=== PATIENT | male | born 1950 | race Caucasian/White ===

== ENCOUNTER 2023-08-23 15:04 | Emergency (ER) | payer MEDICARE ==
[~2023-08-23] VITALS: Ht 177.8 cm; Wt 68.9 kg
[2023-08-23] MEDS ORDERED: ZOLP5TAB8 PO (15:35)
[2023-08-23] MEDS ORDERED: SIMV-46 PO (15:35)
[2023-08-23] MEDS ORDERED: AMLO10TA59 PO (15:35)
[2023-08-23] MEDS ORDERED: LISI40TA13 PO (15:35)
[2023-08-23] MEDS ORDERED: CLON0.5T4 PO (15:35)
[2023-08-23 16:04] LABS: BASOPHILS # (AUTO) 0.2 K/UL (0.0-0.2); EOSINOPHILS # (AUTO) 0.1 K/uL (0.0-0.7); EOSINOPHILS % (AUTO) 0.7 % (0.0-7.0); HEMATOCRIT 37.5 % (36.7-47.1); HEMOGLOBIN 12.9 g/dL (12.5-16.3); LYMPHOCYTES # (AUTO) 0.7 K/uL (0.8-4.8); LYMPHOCYTES % (AUTO) 8.4 % (20.5-51.5); MEAN CORPUSCULAR HEMOGLOBIN 33.3 uug (23.8-33.4); MEAN CORPUSCULAR HGB CONC 34 g/dL (32.5-36.3); MEAN CORPUSCULAR VOLUME 96.7 fL (73.0-96.2); MONOCYTES # (AUTO) 0.6 K/uL (0.1-1.30); MONOCYTES % (AUTO) 6.5 % (0.0-11.0); NEUTROPHILS # (AUTO) 7.2 K/uL (1.8-8.9); NEUTROPHILS % (AUTO) 82.4 % (38.5-71.5); PLATELET COUNT (AUTO) 351 K/uL (152-348); RED BLOOD CELL COUNT(AUTO) 3.87 MIL/uL (4.06-5.63); RED CELL DISTRIBUTION WIDTH 12.7 % (12.1-16.2); WHITE BLOOD COUNT (AUTO) 8.7 K/uL (3.6-10.2)
[2023-08-23 16:25] LABS: ALANINE AMINOTRANSFERASE 23 U/L (16-63); ALBUMIN 4.3 g/dL (3.4-5.0); ALKALINE PHOSPHATASE 83 U/L (50-136); ASPARTATE AMINOTRANSFERASE 13 U/L (15-37); BILIRUBIN,DIRECT 0.2 mg/dL (0.0-0.2); BILIRUBIN,TOTAL 0.6 mg/dL (0.2-1.0); CALCIUM 9.3 mg/dL (8.5-10.1); CARBON DIOXIDE 26 mmol/L (21-32); CHLORIDE 101 mmol/L (98-107); CREATININE 1.6 mg/dL (0.6-1.3); GLUCOSE 157 mg/dL (74-106); NT-PRO BNP 91 pg/mL (0-125); SODIUM SERUM 139 mmol/L (136-145); TOTAL PROTEIN, SERUM 7.8 g/dL (6.4-8.2); UREA NITROGEN, BLOOD 21 mg/dL (7-18)
[2023-08-23 16:28] LABS: DIFFERENTIAL COMMENT 1
[2023-08-23] MEDS ORDERED: FAMOTIDINE. 20 MG/2 ML VIAL IV ONE (16:31)
[2023-08-23] MEDS: IV NS 1000 ML 1,000 ML IV ONE (16:37)
[2023-08-23] MEDS: FAMOTIDINE. 20 MG/2 ML VIAL IV ONE (16:38)
[2023-08-23 18:59] VITALS: BP 129/70; O2SAT 100
== END 2023-08-23 19:00 | disposition home or self-care (01) ==
LOC: ER 15:04
DX: R00.2 Palpitations (principal); E78.5 Hyperlipidemia, unspecified; K21.9 Gastro-esophageal reflux disease without esophagitis; Z79.899 Other long term (current) drug therapy
CPT/HCPCS: 99285; 96374; 71045; 96361; 80076; 80048; 83880; 83735; 85025; 85730; 84484; 36415; 93005; J3490; J7040; A4606; A4663